=== PATIENT | male | born 1970 | race Caucasian/White ===

== ENCOUNTER 2020-06-03 15:25 | Emergency (ER) | payer BC, SELFPAY ==
[~2020-06-03] VITALS: Ht 195.6 cm; Wt 116.1 kg
[2020-06-03 15:28] VITALS: Ht 195.6 cm; Wt 116.1 kg
[2020-06-03 17:25] VITALS: BP 128/79
== END 2020-06-03 17:25 | disposition home or self-care (01) ==
LOC: ED 15:25
DX: S29.9XXA Unspecified injury of thorax, initial encounter (principal); R91.8 Other nonspecific abnormal finding of lung field; J45.909 Unspecified asthma, uncomplicated; Z88.1 Allergy status to other antibiotic agents; W14.XXXA Fall from tree, initial encounter; Y93.89 Activity, other specified; Y92.89 Other specified places as the place of occurrence of the external cause; Y99.8 Other external cause status